=== PATIENT | male | born 1965 ===

== ENCOUNTER 2016-08-08 05:14 | Inpatient (IN) | payer OTHER ==
[~2016-08-08] VITALS: Ht 180.3 cm; Wt 85.3 kg
[2016-08-08] VITALS (15 sets, daily range): BP systolic 114–148; BP diastolic 79–105
[2016-08-08] MEDS ORDERED: IBUPROFEN600 MG ORAL (06:31)
[2016-08-08] MEDS ORDERED: ZANTAC150 MG ORAL (06:31)
[2016-08-08] MEDS ORDERED: HYDROCODON-ACE1 EA13 ORAL (06:31)
[2016-08-08] MEDS ORDERED: CYCLOBENZAPRINE10 MG ORAL (06:31)
[2016-08-08] MEDS ORDERED: BUTALBITAL-ASA1 EACH PO (06:31)
[2016-08-08] MEDS ORDERED: Thrombin 5000 units TOPIC ONE (06:43)
[2016-08-08] MEDS ORDERED: Surgicel 4in x 8in TOPIC ONE (06:43)
[2016-08-08] MEDS ORDERED: Bupivacaine w/Epi 0.5% 30ml Vial INJ ONE (06:43)
[2016-08-08] MEDS ORDERED: Thrombin 5000 units spray kit TOPIC ONE (06:44)
[2016-08-08] MEDS ORDERED: Bacitracin 50000 Units Vial ONE (06:44)
[2016-08-08] MEDS ORDERED: Gelfoam Absorbable 1gm powder pkt TOPIC ONE (06:44)
--- NOTE | 2016-08-08 06:53 | Pre-Procedure Note/Attestation ---
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 I attest that, if there was a reasonable possibility of needing a blood transfusion, the patient (or the patient's legal sales representative adding machines) was given the [facility] standardized written summary, pursuant to the [employer] Blood Safety Act ([place] Health and Safety Code # 1645, as amended). I attest that I re-evaluated the patient just prior to the surgery and that there has been no change in the patient's H&P, except as documented below: MAGGIE CHOI Aug 08, 2016 06:53
[2016-08-08] MEDS ORDERED: LR 1000ml 1,000 ML IVLG SCH ×2 (06:59)
[2016-08-08] MEDS ORDERED: Midazolam 2mg/2ml Inj ONE (07:00)
[2016-08-08] MEDS ORDERED: NS Irrig 1000ml ONE (07:00)
[2016-08-08] MEDS ORDERED: Nimbex 2mg/ml Inj 10ML IVP ONE (07:00)
[2016-08-08] MEDS ORDERED: Ranitidine 50mg/2ml Inj ONE (07:00)
[2016-08-08] MEDS ORDERED: fentaNYL 100 mcg/2 mL IV ONE (07:00)
[2016-08-08] MEDS ORDERED: Labetalol 5mg/ml 20ml vial IV ONE (07:00)
[2016-08-08] MEDS ORDERED: LR 1000ml 1,000 ML IV SCH (07:00)
[2016-08-08] MEDS ORDERED: Glycopyrrolate 0.2mg/ml 1ml Vial ONE (07:00)
[2016-08-08] MEDS ORDERED: Sterile Water Irrig 1000ml IRRIG ONE (07:00)
[2016-08-08] MEDS ORDERED: LR 1000ml ONE (07:00)
[2016-08-08] MEDS ORDERED: LORazepam Inj 2mg/ml 1ml IV PRN (07:00)
[2016-08-08] MEDS ORDERED: Propofol 10mg/ml 100ml btl IV ONE (07:00)
[2016-08-08] MEDS ORDERED: Hydromorphone 0.5mg/0.5ml inj IVP PRN (07:00)
--- NOTE | 2016-08-08 07:07 | Anethesia Preoperative Eval ---
Anesthesia Pre-op PMH/ROS General Date of Evaluation: Aug 08, 2016 Time of Evaluation: 06:50 Anesthesiologist: Katay ASA Score: ASA 2 Mallampati Score Class I : Soft palate, uvula, fauces, pillars visible Class II: Soft palate, uvula, fauces visible Class III: Soft palate, base of uvula visible Class IV: Only hard plate visible Mallampati Classification: Class II Surgeon: Sammy Diagnosis: Cervical disc bulge Surgical Procedure: ACDF Allergies: Coded Allergies: No Known Allergies (Unverified , 08/04/16) Medications: see eMAR Past Medical History Cardiovascular: Reports: HTN, Denies: CAD, NH, arrhythmia, other, valve dz Pulmonary: Denies: COPD, DESEAN, asthma, other Gastrointestinal/Genitourinary: Reports: GERD, Denies: CRI, ESRD, other Neurologic/Psychiatric: Denies: CVA, TIA, dementia, depression/anxiety, other Endocrine: Denies: DM, hypothyroidism, other, steroids HEENT: Denies: [place] (L), [place] (R), cataract (L), cataract (R), glaucoma, other Hematology/Immune: Denies: DVT, anemia, bleeding disorder, other Musculoskeletal/Integumentary: Denies: DDD, DJD, OA, RA, edema, other PMH Narrative: HTN, GERD PSxH Narrative: Right leg surgery Anesthesia Pre-op Phys. Exam Physician Exam Last Vital Signs Date Time Temp Pulse Resp B/P Pulse Ox O2 Delivery O2 Flow Rate FiO2 08/08/16 06:34 84 18 133/94 100 08/08/16 06:13 97.5 Room Air Constitutional: NAD Neurologic: CN 2-12 intact Cardiovascular: RRR, no M/R/G Respiratory: CTA Gastrointestinal: S/NT/ND Airway Exam Mallampati Score: Class II MO: full ROM: full Teeth: intact Anesthesia Pre-op A/P Labs WNL Studies Pre-op Studies: EKG - NSR, CXR - NAD, echo - Normal wall motion, EF 55-60%, diastolic dysfunction Risk Assessment & Plan Assessment: Cervical disc bulge Plan: GETA Status Change Before Surgery: No Pre-Antibiotics Drug: Ancef Given Within 1 Hr of Incision: Yes Time Given: 07:30 JAMES MOORE M.D. Aug 08, 2016 07:07
[2016-08-08] MEDS ORDERED: Sodium Citrate 30ml ORAL ONE (07:30)
--- NOTE | 2016-08-08 08:49 | Immediate Post-Op Evaluation ---
Immediate Post-Op Evalulation Immediate Post-Op Evalulation Procedure: ACDF Date of Evaluation: Aug 08, 2016 Time of Evaluation: 09:55 IV Fluids: 1050 Estimated Blood Loss: 70 Blood Pressure Systolic: 124 Blood Pressure Diastolic: 77 Pulse Rate: 96 Respiratory Rate: 22 O2 Sat by Pulse Oximetry: 98 Temperature (Fahrenheit): 97.5 Pain Score (1-10): 5 (headache pain) Nausea: No Vomiting: No Complications No complication except headache Patient Status: awake, patent, extubated, none Hydration Status: adequate Drug: Ancef Given Within 1 Hr of Incision: Yes Time Given: 07:30 JAMES MOORE M.D. Aug 08, 2016 08:49
--- NOTE | 2016-08-08 09:49 | Operative Note - PDOC ---
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
[2016-08-08] MEDS: Meperidine 25mg/0.5ml Inj IV PRN ×2 (09:55→10:19)
[2016-08-08] MEDS ORDERED: Ketorolac 30mg Inj IV PRN (10:00)
[2016-08-08] MEDS ORDERED: Acetaminophen 650 MG SUPP RECTAL PRN (10:00)
[2016-08-08] MEDS ORDERED: DiphenhydrAMINE 50mg/ml Inj IVP PRN (10:15)
[2016-08-08] MEDS ORDERED: Naloxone 0.4mg/ml Inj IVP PRN (10:15)
[2016-08-08] MEDS ORDERED: Rate Change PCA 1 Each MISC PRN (10:15)
[2016-08-08] MEDS: PCA HYDROmorphone 1mg/ml 30 ML IV PRN (10:15)
[2016-08-08] MEDS: Cyclobenzaprine 10mg Tab ORAL SCH ×2 (12:58→17:44)
[2016-08-08] MEDS: ceFAZolin sod 1 GM in D5W 55 ML IV SCH ×2 (15:53→23:09)
--- NOTE | 2016-08-08 18:36 | 48 Hour Post Anesthesia Eval ---
Post Anesthesia Evaluation Procedure: ACDF Date of Evaluation: Aug 08, 2016 Time of Evaluation: 18:30 Blood Pressure Systolic: 134 0: 86 Pulse Rate: 76 Respiratory Rate: 18 Temperature (Fahrenheit): 97.5 O2 Sat by Pulse Oximetry: 98 Airway: patent Nausea: No Vomiting: No Pain Intensity: 3 Hydration Status: adequate Cardiopulmonary Status: Stable Mental Status/LOC: patient returned to baseline Follow-up Care/Observations: As per surgery Post-Anesthesia Complications: No anesthetic complication Follow-up care needed: N/A JAMES MOORE M.D. Aug 08, 2016 18:36
[2016-08-08] MEDS: PCA shift volume MISC SCH (19:20)
--- NOTE | 2016-08-08 21:15 | Operative Note - Dictated ---
DATE OF OPERATION: 08/08/2016 FACILITY: [facility]. SURGEON: Galileo Christianson M.D. CUSTOMER SERVICE CONSULTANT: Elena Rivas ANESTHESIOLOGIST: Huy Aldana M.D. ANESTHESIA: General endotracheal with arterial blood pressure monitoring. PREOPERATIVE DIAGNOSES: Severe lumbar spondylosis C5-6, C6-7, with foramen occlusion right and left at both levels, and significant canal stenosis causing cord pressure and cord deformity. POSTOPERATIVE DIAGNOSES: Severe lumbar spondylosis C5-6, C6-7, with foramen occlusion right and left at both Levels, and significant canal stenosis causing cord pressure and cord deformity. OPERATIVE PROCEDURE: Right anterior approach to the cervical spine with mobilization of the carotid sheath, trachea, and esophagus to reach the anterior spine, anterior annulotomy, nuclear diskectomy, partial vertebrectomy, bilateral neural foraminotomy and microneurolysis, open-reduction internal fixation at both levels using a cortical cancellous allograft that was 7 mm in height 18 mm in width and 14 in depth with 8 degrees of lordosis fixation anteriorly with [employer] dynamic plate self-locking 35 mm with four 15-mm compression screws at the intermediate low-level and 17 screws at the C5 level. The patient was anesthetized in the supine position. Bolster was placed between the scapula and posterior neck, halter traction was used to extend the neck. The arms were tucked and tracked distally. A marker x-ray was taken laterally to identify the level of the skin incision. A 2-inch incision was made on the right side in the skin crease beginning from the midline extending to the right laterally carried down through the skin, platysma and the level was developed between the sternocleidomastoid and carotid sheath laterally, trachea and esophagus medially. Jugular venous plexus was then identified protected and retracted. The anterior spine was reached and cleared with blunt dissection. A North-south East-West self-retaining retractor was then inserted and a marker x-ray was done to identify the level which was initially at both C5-6 and C6-7 were exposed anteriorly with the self-retaining retractors. At C6-7, the anterior anulus was incised with 11 blade and the anterior osteophytes were then removed with a Midas using an AMA 8-bur. The cartilaginous endplate and soft disk was then removed from front to back after using a Kerrison to remove the anterior inferior lip of the vertebral body of C6. The dissection was carried backward using a Midas small angled straight curettes and Kerrisons. There were significant osteophytic prominences from the back of the body of C6 and C7 compressing the cord and occluding both the right and left foramen. The posterior osteophytic lip of C6 and C7 was completely removed, so that an angled curette could easily pass between the cord and the dissected posterior body. Both right and left foramen were widely open. Position of the vertebral artery was checked preoperatively and was in a safe lateral position. The level was then templated out to 7 mm. The edges were smooth. The anterior lip was completely removed. The C5-6 level was then approached similarly incising the anterior anulus removing the anterior osteophytes in the anterior lip of C5 with a Kerrison. The cartilaginous endplate was then removed posteriorly to the posterior osteophytic rim was encountered this was removed with the Midas using an AMA and then small angled curettes and the 2 mm Kerrison until the posterior osteophytes from the body of C5 and C6 were completely removed and the right and left foramen was widely opened. The space was templated up to 7 mm after the endplates were smoothed with the Midas. Two grafts were soaked and tapped into position just behind the anterior cortex. A 35 mm plate was chosen to reach the inferior edge of the body of C5 and the superior anterior edge of the body of C7. A temporary pin was positioned and AP and lateral x-ray was taken. The plate was then centered for rotation and secured using two 15-mm compression screws in the middle for C6 and two 15 mm screws in the body of C7 and two 17 mm screws were angled upward to lock the top of the graft and the inferior aspect of the body of C5. Position was checked. Soft tissues were checked. The wound was then closed in layers with the platysma, subcutaneous, and skin. Blood loss was approximately 50 mL. The patient tolerated the procedure well and was returned to recovery room in good condition, compression bandage and cervical collar. Galileo Christianson M.D. DR: DAMIAN JOB#: [id number] CC:
[2016-08-09 00:14] VITALS: BP 146/102
[2016-08-09 04:00] VITALS: BP 142/100
[2016-08-09] MEDS: ceFAZolin sod 1 GM in D5W 55 ML IV SCH (06:22)
[2016-08-09] MEDS: PCA shift volume MISC SCH ×2 (07:13→19:00)
[2016-08-09 08:00] VITALS: BP 144/95
--- NOTE | 2016-08-09 08:39 | Diagnostic Imaging Report ---
Indication: PAIN pain in neck and left upper extremity greater than the right upper extremity Technique: Digital intraoperative images Comparison: None Findings: Intraoperative images demonstrate surgical tool projecting at the anterior aspect of the C6-7 disc. Subsequent images document anterior surgical fusion of C5, C6, and C7. Impression: Intraoperative imaging, as described
--- NOTE | 2016-08-09 08:43 | History & Physical ---
History and Physical History & Physicial HP reviewed care noted d/w RN meds ordered NELLY BACK Aug 09, 2016 08:43
--- NOTE | 2016-08-09 08:44 | General Progress Note ---
Assessment/Plan Assessment/Plan Degenerative Disc Disesas with Instability C5-6 C6-7 C5-6, C6-7 ACDF PLAN 1. incentive spirometry 2. SCD 3. PT evaluation and therapy 4. Hydration 5. Pain management 6. discharge once stable with outpatient follow up Subjective Allergies: Coded Allergies: No Known Allergies (Unverified , 08/04/16) Subjective post op stable Objective Last 24 Hour Vital Signs Date Time Temp Pulse Resp B/P Pulse Ox O2 Delivery O2 Flow Rate FiO2 08/09/16 04:00 97.7 71 20 142/100 98 Room Air 08/09/16 04:00 16 08/09/16 00:14 97.5 90 20 146/102 98 08/09/16 00:00 18 08/08/16 20:00 19 08/08/16 20:00 97.7 74 20 139/97 95 Nasal Cannula 2.0 08/08/16 18:43 97.5 08/08/16 18:36 76 18 98 08/08/16 16:00 18 08/08/16 16:00 97.5 76 18 134/86 98 Nasal Cannula 2.0 08/08/16 15:11 97.7 08/08/16 12:32 18 08/08/16 12:30 97.7 87 17 142/90 98 Nasal Cannula 2.0 08/08/16 12:02 18 08/08/16 11:39 97.7 08/08/16 11:35 20 08/08/16 11:34 97.7 08/08/16 11:34 97.7 08/08/16 11:20 97.7 86 18 148/86 97 Nasal Cannula 2.0 08/08/16 11:00 97.7 88 20 133/90 98 Nasal Cannula 3.0 08/08/16 11:00 20 08/08/16 10:45 20 08/08/16 10:45 79 20 125/83 98 Nasal Cannula 3.0 08/08/16 10:30 20 08/08/16 10:30 84 20 127/87 98 Nasal Cannula 3.0 08/08/16 10:19 92 20 139/79 98 Simple Mask 8.0 08/08/16 10:15 88 20 132/94 98 Simple Mask 8.0 08/08/16 10:15 20 08/08/16 10:06 90 20 130/93 98 Simple Mask 10.0 08/08/16 09:55 93 20 137/92 98 Simple Mask 10.0 08/08/16 09:55 96 22 98 08/08/16 09:50 96 20 134/86 99 Simple Mask 10.0 08/08/16 09:45 97.5 93 20 114/80 99 Simple Mask 10.0 Intake and Output 08/08/16 08/09/16 19:00 07:00 Intake Total 2050 ml 1320 ml Output Total 70 ml 500 ml Balance 1980 ml 820 ml Intake Oral 250 ml 120 ml IV Total 1800 ml 1200 ml Output Urine Total 500 ml Estimated Blood Loss 70 ml # Voids 1 Height (Feet): 5 Height (Inches): 11.00 Weight (Pounds): 188 Objective WDWN NAD clear breath sounds bilaterally without rhonchi or wheeze [id number] without MRG NABS nontender no HSM no CCE nonfocal NELLY BACK Aug 09, 2016 08:44
--- NOTE | 2016-08-09 08:51 | General Surgery Progress Note ---
General Surgery-Progress Note Subjective Procedure Performed C5-6, C6-7 ACDF Symptoms: improved Objective Last 24 Hour Vital Signs Date Time Temp Pulse Resp B/P Pulse Ox O2 Delivery O2 Flow Rate FiO2 08/09/16 04:00 97.7 71 20 142/100 98 Room Air 08/09/16 04:00 16 08/09/16 00:14 97.5 90 20 146/102 98 08/09/16 00:00 18 08/08/16 20:00 19 08/08/16 20:00 97.7 74 20 139/97 95 Nasal Cannula 2.0 08/08/16 18:43 97.5 08/08/16 18:36 76 18 98 08/08/16 16:00 18 08/08/16 16:00 97.5 76 18 134/86 98 Nasal Cannula 2.0 08/08/16 15:11 97.7 08/08/16 12:32 18 08/08/16 12:30 97.7 87 17 142/90 98 Nasal Cannula 2.0 08/08/16 12:02 18 08/08/16 11:39 97.7 08/08/16 11:35 20 08/08/16 11:34 97.7 08/08/16 11:34 97.7 08/08/16 11:20 97.7 86 18 148/86 97 Nasal Cannula 2.0 08/08/16 11:00 97.7 88 20 133/90 98 Nasal Cannula 3.0 08/08/16 11:00 20 08/08/16 10:45 20 08/08/16 10:45 79 20 125/83 98 Nasal Cannula 3.0 08/08/16 10:30 20 08/08/16 10:30 84 20 127/87 98 Nasal Cannula 3.0 08/08/16 10:19 92 20 139/79 98 Simple Mask 8.0 08/08/16 10:15 88 20 132/94 98 Simple Mask 8.0 08/08/16 10:15 20 08/08/16 10:06 90 20 130/93 98 Simple Mask 10.0 08/08/16 09:55 93 20 137/92 98 Simple Mask 10.0 08/08/16 09:55 96 22 98 08/08/16 09:50 96 20 134/86 99 Simple Mask 10.0 08/08/16 09:45 97.5 93 20 114/80 99 Simple Mask 10.0 I&O Intake and Output 08/08/16 08/09/16 19:00 07:00 Intake Total 2050 ml 1320 ml Output Total 70 ml 500 ml Balance 1980 ml 820 ml Intake Oral 250 ml 120 ml IV Total 1800 ml 1200 ml Output Urine Total 500 ml Estimated Blood Loss 70 ml # Voids 1 Dressing: dry Wound: clean Drains: none Additional Comments Patient taking oral feeds. Upper extremity strength 5/5 bilaterally. Will begin PT & OT today. Wearing collar as directed. DR. liu following. MAGGIE CHOI Aug 09, 2016 08:51
[2016-08-09] MEDS: Cyclobenzaprine 10mg Tab ORAL SCH ×3 (09:28→17:24)
[2016-08-09 12:00] VITALS: BP_SYST 137; BP_SYST 155; BP_DIAS 107; BP_DIAS 98
[2016-08-09] MEDS: PCA HYDROmorphone 1mg/ml 30 ML IV PRN (12:02)
[2016-08-09 16:12] VITALS: BP 157/112
[2016-08-09] MEDS: LORazepam 1mg tab ORAL PRN ×2 (19:08→23:56)
[2016-08-09 20:00] VITALS: BP 150/104
[2016-08-10] VITALS (7 sets, daily range): BP systolic 141–169; BP diastolic 97–109
[2016-08-10] MEDS: PCA shift volume MISC SCH ×2 (07:05→19:22)
[2016-08-10] MEDS: Cyclobenzaprine 10mg Tab ORAL SCH ×3 (08:36→17:20)
[2016-08-10] MEDS ORDERED: HYDROmorphone 1mg/ml Carpuject IVP PRN (10:15)
[2016-08-10] MEDS ORDERED: HYDROmorphone 1mg/ml Carpuject SUBQ PRN (10:15)
[2016-08-10] MEDS ORDERED: Norco 7.5mg/325mg tab ORAL PRN ×2 (10:15)
[2016-08-10] MEDS ORDERED: Naloxone 0.4mg/ml Inj IVP PRN ×2 (10:15→11:15)
[2016-08-10] MEDS ORDERED: Rate Change PCA 1 Each MISC PRN (11:15)
[2016-08-10] MEDS ORDERED: PCA HYDROmorphone 1mg/ml 30 ML IV PRN (11:15)
[2016-08-10] MEDS ORDERED: LORazepam 1mg tab ORAL PRN (11:15)
[2016-08-10] MEDS ORDERED: Acetaminophen 650 MG SUPP RECTAL PRN (11:19)
--- NOTE | 2016-08-10 11:44 | General Progress Note ---
Assessment/Plan Assessment/Plan Degenerative Disc Disesas with Instability C5-6 C6-7 C5-6, C6-7 ACDF PLAN 1. incentive spirometry 2. SCD 3. PT evaluation and therapy 4. Hydration 5. Pain management 6. discharge planning Subjective Allergies: Coded Allergies: No Known Allergies (Unverified , 08/04/16) Subjective post op improved Objective Last 24 Hour Vital Signs Date Time Temp Pulse Resp B/P Pulse Ox O2 Delivery O2 Flow Rate FiO2 08/10/16 11:33 97.9 104 18 142/97 97 Room Air 08/10/16 09:36 96.6 08/10/16 08:36 96.6 97 18 151/109 97 Room Air 2.0 08/10/16 08:35 102 151/109 08/10/16 08:00 96.6 97 18 169/102 97 Room Air 08/10/16 08:00 16 08/10/16 05:31 158/103 08/10/16 04:00 16 08/10/16 04:00 98.2 99 18 158/103 98 Room Air 08/10/16 00:06 16 08/10/16 00:00 96.6 100 18 143/108 98 Room Air 08/09/16 20:03 18 08/09/16 20:00 98.2 99 18 150/104 93 Room Air 08/09/16 17:24 157/112 08/09/16 16:12 97.9 92 20 157/112 98 Room Air 08/09/16 16:00 18 08/09/16 13:12 96 155/101 08/09/16 12:35 96.4 08/09/16 12:10 16 08/09/16 12:00 16 08/09/16 12:00 97.7 77 19 137/98 96 08/09/16 12:00 97.9 77 19 155/107 96 Intake and Output 08/09/16 08/10/16 19:00 07:00 Intake Total 1660 ml 1860 ml Output Total 500 ml Balance 1660 ml 1360 ml Intake Oral 560 ml 660 ml IV Total 1100 ml 1200 ml Output Urine Total 500 ml # Voids 2 3 Height (Feet): 5 Height (Inches): 11.00 Weight (Pounds): 188 Objective WDWN NAD clear breath sounds bilaterally without rhonchi or wheeze [id number] without MRG NABS nontender no HSM no CCE nonfocal NELLY BACK Aug 10, 2016 11:44
--- NOTE | 2016-08-10 12:35 | General Surgery Progress Note ---
General Surgery-Progress Note Subjective Procedure Performed C5-6, C6-7 ACDF Chief Complaint: Dificult / painful swallowing Symptoms: improved Objective Last 24 Hour Vital Signs Date Time Temp Pulse Resp B/P Pulse Ox O2 Delivery O2 Flow Rate FiO2 08/10/16 11:33 97.9 104 18 142/97 97 Room Air 08/10/16 09:36 96.6 08/10/16 08:36 96.6 97 18 151/109 97 Room Air 2.0 08/10/16 08:35 102 151/109 08/10/16 08:00 96.6 97 18 169/102 97 Room Air 08/10/16 08:00 16 08/10/16 05:31 158/103 08/10/16 04:00 16 08/10/16 04:00 98.2 99 18 158/103 98 Room Air 08/10/16 00:06 16 08/10/16 00:00 96.6 100 18 143/108 98 Room Air 08/09/16 20:03 18 08/09/16 20:00 98.2 99 18 150/104 93 Room Air 08/09/16 17:24 157/112 08/09/16 16:12 97.9 92 20 157/112 98 Room Air 08/09/16 16:00 18 08/09/16 13:12 96 155/101 08/09/16 12:35 96.4 I&O Intake and Output 08/09/16 08/10/16 19:00 07:00 Intake Total 1660 ml 1860 ml Output Total 500 ml Balance 1660 ml 1360 ml Intake Oral 560 ml 660 ml IV Total 1100 ml 1200 ml Output Urine Total 500 ml # Voids 2 3 Dressing: dry Wound: clean Drains: none Additional Comments Patient having some difficulty swallowing. Up with PT today. 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 Dr. Montague following. MAGGIE CHOI Aug 10, 2016 12:35
[2016-08-10] MEDS ORDERED: PCA shift volume MISC SCH (19:00)
[2016-08-11] VITALS: BP 151/94
[2016-08-11 04:00] VITALS: BP 131/96
[2016-08-11] MEDS: PCA shift volume MISC SCH (07:03)
[2016-08-11] MEDS ORDERED: Norco 10mg/325mg tab ORAL PRN (07:30)
[2016-08-11] MEDS ORDERED: Norco 5mg/325mg tab ORAL PRN (07:30)
[2016-08-11 08:00] VITALS: BP 137/99
[2016-08-11 08:10] VITALS: BP 137/99
[2016-08-11] MEDS: Cyclobenzaprine 10mg Tab ORAL SCH (08:11)
--- NOTE | 2016-08-11 08:21 | General Progress Note ---
Assessment/Plan Assessment/Plan Degenerative Disc Disesas with Instability C5-6 C6-7 C5-6, C6-7 ACDF PLAN 1. incentive spirometry 2.pain management for home 3. dc today Subjective Allergies: Coded Allergies: No Known Allergies (Unverified , 08/04/16) Subjective ready to go home pain better controlled Objective Last 24 Hour Vital Signs Date Time Temp Pulse Resp B/P Pulse Ox O2 Delivery O2 Flow Rate FiO2 08/11/16 08:10 98 137/99 08/11/16 08:00 97.9 98 20 137/99 99 Room Air 08/11/16 04:00 16 08/11/16 04:00 97.7 99 20 131/96 99 Room Air 08/11/16 00:00 18 08/11/16 00:00 97.0 97 16 151/94 98 Room Air 08/10/16 20:00 18 08/10/16 20:00 97.9 108 16 144/103 96 Room Air 08/10/16 18:19 97.9 08/10/16 16:15 97.9 08/10/16 16:01 18 08/10/16 16:00 18 08/10/16 15:57 97.9 101 19 141/104 99 Room Air 08/10/16 12:00 18 08/10/16 11:33 97.9 104 18 142/97 97 Room Air 08/10/16 08:36 96.6 97 18 151/109 97 Room Air 2.0 08/10/16 08:35 102 151/109 Intake and Output 08/10/16 08/11/16 19:00 07:00 Intake Total 340 ml 1220 ml Output Total 660 ml Balance 340 ml 560 ml Intake Oral 240 ml 120 ml IV Total 100 ml 1100 ml Output Urine Total 660 ml Height (Feet): 5 Height (Inches): 11.00 Weight (Pounds): 188 Objective WDWN NAD clear breath sounds bilaterally without rhonchi or wheeze [id number] without MRG NABS nontender no HSM no CCE nonfocal NELLY BACK Aug 11, 2016 08:21
--- NOTE | 2016-08-11 08:51 | General Surgery Progress Note ---
General Surgery-Progress Note Subjective Procedure Performed C5-6, C6-7 ACDF Symptoms: improved, tolerating diet Objective Last 24 Hour Vital Signs Date Time Temp Pulse Resp B/P Pulse Ox O2 Delivery O2 Flow Rate FiO2 08/11/16 08:10 98 137/99 08/11/16 08:00 97.9 98 20 137/99 99 Room Air 08/11/16 08:00 18 08/11/16 04:00 16 08/11/16 04:00 97.7 99 20 131/96 99 Room Air 08/11/16 00:00 18 08/11/16 00:00 97.0 97 16 151/94 98 Room Air 08/10/16 20:00 18 08/10/16 20:00 97.9 108 16 144/103 96 Room Air 08/10/16 18:19 97.9 08/10/16 16:15 97.9 08/10/16 16:01 18 08/10/16 16:00 18 08/10/16 15:57 97.9 101 19 141/104 99 Room Air 08/10/16 12:00 18 08/10/16 11:33 97.9 104 18 142/97 97 Room Air I&O Intake and Output 08/10/16 08/11/16 19:00 07:00 Intake Total 340 ml 1220 ml Output Total 660 ml Balance 340 ml 560 ml Intake Oral 240 ml 120 ml IV Total 100 ml 1100 ml Output Urine Total 660 ml Dressing: dry Wound: clean Drains: none Additional Comments Patient tolerating regular diet. He has completed necessary PT / OT training. He is ready to discharge home form orthopedic standpoint. MAGGIE Ayers Aug 11, 2016 08:51
[2016-08-11] MEDS ORDERED: Tubing IV Secondary IV ONE (10:59)
[2016-08-12] MEDS ORDERED: Naloxone 0.4mg/ml Inj IVP PRN (11:30)
--- NOTE | 2016-08-12 13:39 | Discharge Summary ---
Discharge Summary Hospital Course Date of Admission Aug 08, 2016 at 05:14 Date of Discharge Aug 11, 2016 at 11:00 Admitting Diagnosis HPI Gilmar Duarte is a 51 year old male who was admitted on Aug 08, 2016 at 05:14 for Cervical Lordosis,Muscle Spasm,Bulge Hospital Course [id number] Discharge Discharge Disposition Patient was discharged to Home (01) Discharge Diagnoses: Cayla Hammonds NP Aug 12, 2016 13:39
--- NOTE | 2016-08-12 22:30 | Discharge Summary 2 SIG ---
DATE OF ADMISSION: 08/08/2016 DATE OF DISCHARGE: 08/11/2016 SURGEON: Galileo Christianson M.D. BRIEF HOSPITAL COURSE: The patient is a 51-year-old male who was injured while working and when lifting the wall. Date of injury was 01/26/2007. As a result, he injured his neck and notes radiation of pain into the shoulder and left arm. He also had numbness on both hands and underwent a cortisone injection, physical therapy, acupuncture, and pain management. He continued to report pain with prolonged standing, walking, and sitting and is unable to sleep through the night due to pain and discomfort. He was admitted on 08/08/2016 and underwent ACDF on C5-C6 and C6-C7. Postoperatively, he was given pain management and was encouraged incentive spirometry. He was given SCDs for DVT prophylaxis. He underwent physical therapy evaluation and therapy. He was directed to wear neck collar. Upper extremity had 5/5 strength bilaterally. He had some difficult swallowing, which improved and was tolerating regular diet. Wounds were clean and dry. The patient was then discharged home. FINAL DIAGNOSIS: Severe lumbar spondylosis, C5-C6, C6-C7 with falling and occlusion on the right and left at both levels and significant canal stenosis causing cord pressure and cord deformity, status post anterior cervical discectomy and fusion on C5-C6 and C6-C7. Abundio Montague M.D. I have been assigned to dictate discharge summary on this account and I was not involved in the patient's management. Cayla Hammonds N.P. DR: ANNALEE JOB#: [id number] CC:
== END 2016-08-11 11:00 | disposition home or self-care (01) | DRG 472 ==
LOC: SDSOVERFLO 05:14 → 3E 11:26
PROC: 00NW0ZZ Release Cervical Spinal Cord, Open Approach (ICD-10-PCS; principal; 2016-08-08 07:00)
PROC: 0RG20Z0 (ICD-10-PCS; principal; 2016-08-08 07:00)
PROC: 0RB30ZZ Excision of Cervical Vertebral Disc, Open Approach (ICD-10-PCS; principal; 2016-08-08 07:00)
PROC: 01N10ZZ Release Cervical Nerve, Open Approach (ICD-10-PCS; principal; 2016-08-08 07:00)
DX: M47.12 Other spondylosis with myelopathy, cervical region (principal); M50.022 Cervical disc disorder at C5-C6 level with myelopathy; M53.2X2 Spinal instabilities, cervical region; M48.02 Spinal stenosis, cervical region; R20.0 Anesthesia of skin
CPT/HCPCS: 36415; 72040; 76001; 86850; 86900; 86901; 87081; 94003; 94150; J2180; J2250; J2405; J2780